=== PATIENT | female | born 1955 | race Caucasian/White ===

== ENCOUNTER → 2022-07-22 14:44 | Outpatient (BNVA) | payer OTHER, MEDICARE, SELFPAY | PROVIDERS: PCP Physician Assistant; Visit Provider Anesthesiology | DX: M96.1 Postlaminectomy syndrome, not elsewhere classified (principal) ==

== ENCOUNTER 2022-08-18 06:18 | Outpatient (REF) | payer OTHER, MEDICARE, SELFPAY ==
--- NOTE | ~2022-08-18 | FL_ITS ---
EXAMINATION: XR FLUOROSCOPY WITH IMAGES CLINICAL INFORMATION: Sacrococcygeal disorder COMPARISON: None. TECHNIQUE: Fluoroscopy Supervised By: Diamond. Fluoroscopy Time: 0.1 minutes. Cumulative Dose: 4.21 mGy. DAP: 1.14 Gycm2. Images: 1. FINDINGS: A single digital image of left SI joint reveals needle position SI joint with contrast was partially opacifying the joint space. No visible fracture or dislocation seen. No bony abnormality. The soft tissues are normal. FL/FL guidance in treatment room IMPRESSION: Fluoroscopy guidance was provided to referrer for left SI joint injection.
== END 2022-08-18 06:19 | disposition home or self-care (01) ==
LOC: CF 06:18
PROVIDERS: Visit Provider Anesthesiology
DX: M53.3 Sacrococcygeal disorders, not elsewhere classified (principal); M46.1 Sacroiliitis, not elsewhere classified; G89.29 Other chronic pain
CPT/HCPCS: 27096

== ENCOUNTER → 2022-08-20 08:07 | Outpatient (BNVA) | payer OTHER, MEDICARE, SELFPAY | PROVIDERS: PCP Physician Assistant; Visit Provider Anesthesiology | DX: Z13.89 Encounter for screening for other disorder (principal) ==

== ENCOUNTER 2022-10-30 10:52 | Day surgery (SDC) | payer OTHER, MEDICARE, SELFPAY ==
[2022-10-27 15:48] VITALS: BMI 31.3
--- NOTE | 2022-10-29 12:17 | HO.ANESPROP2 ---
Documented by User: Serena Bates NP 10/29/22 12:31 HPI - Anesthesia Eval Consult details Narrative: 67yo F for Spinal Cord Stimulator Trial Cardiology ok'd holding asa/plavix - last visit 04/2022 s/p cardiac cath with stent 2020 s/p MVR with LA maze and LA appendenge ligation 2016 Pulm htn improved SOB with isosorbide and diuretics PMFSH Active Problems Active Problems: All Active Problems (Updated 09/14/22 @ 10:55 by Thao Murguia RN) Postlaminectomy syndrome (Acute) Chronic pain syndrome (Acute) Sacroiliitis (Acute) Chronic right sacroiliac joint pain (Acute) Chronic left sacroiliac joint pain (Acute) Past Medical History Medical History (Updated 09/14/22 @ 10:55 by Thao Murguia RN) Atrial fibrillation Barretts esophagus Central sleep apnea CHF (congestive heart failure) Chronic renal insufficiency COPD (chronic obstructive pulmonary disease) Elevated cholesterol GERD (gastroesophageal reflux disease) History of cardioversion HTN (hypertension) Hypothyroid Mitral valve regurgitation Mitral valve stenosis Pulmonary hypertension Tobacco dependence Surgical History Surgical History (Updated 09/14/22 @ 10:55 by Thao Murguia RN) H/O colonoscopy History of total left hip replacement Hx of appendectomy Hx of cardiac catheterization Hx of cholecystectomy Hx of mitral valve replacement Social History Social History (Updated 09/14/22 @ 11:10 by Thao Murguia RN) Patient Tobacco Use Status: Current everyday Tobacco user Tobacco use type: Cigarette Cigarettes Per Day: 5 Use of substances other than those prescribed or required for medical reasons: No Are you DNR?: No Advance Directives: No Advance Directives Information Provided: Yes Meds Allergies Allergy/AdvReac Type Severity Reaction Status Date / Time No Known Allergies Allergy Verified 08/20/22 08:07 Home Medications Medication Instructions Recorded Confirmed Last Taken Type aspirin 81 mg tablet,delayed 81 mg PO DAILY 07/22/22 10/27/22 10/22/22 History release escitalopram oxalate 10 mg tablet 10 mg PO DAILY 07/22/22 10/27/22 10/30/22 History fenofibrate nanocrystallized 48 mg 48 mg PO BEDTIME 07/22/22 10/27/22 Unknown History tablet gabapentin 300 mg capsule 900 mg PO TID 07/22/22 10/27/22 10/30/22 History hydroxyzine pamoate 25 mg capsule 25 mg PO TID PRN anxiety 07/22/22 10/27/22 Unknown History isosorbide mononitrate 30 mg 30 mg PO BID 07/22/22 10/27/22 10/30/22 History tablet,extended release 24 hr levothyroxine 200 mcg tablet 200 mcg PO DAILY 07/22/22 10/27/22 10/30/22 History metoprolol succinate 25 mg 25 mg PO BEDTIME 07/22/22 10/27/22 Unknown History tablet,extended release 24 hr simvastatin 40 mg tablet 40 mg PO BEDTIME 07/22/22 10/27/22 Unknown History torsemide 10 mg tablet 20 mg PO DAILY 07/22/22 10/27/22 Unknown History albuterol sulfate 90 mcg/actuation 2 puff inhalation Q4-6H PRN 09/14/22 10/27/22 Unknown History aerosol inhaler (ProAir HFA) Shortness Of Breath allopurinol 100 mg tablet 1 tab PO BID 09/14/22 10/27/22 Unknown History cholecalciferol (vitamin D3) 25 25 mcg PO DAILY 09/14/22 10/27/22 Unknown History mcg (1,000 unit) capsule (Vitamin D3) colchicine 0.6 mg capsule 1 cap PO BID PRN gout 09/14/22 10/27/22 Unknown History cyanocobalamin (vitamin B-12) 1,000 mcg PO DAILY 09/14/22 10/27/22 Unknown History 1,000 mcg tablet (Vitamin B-12) duloxetine 60 mg capsule,delayed 1 cap PO DAILY 09/14/22 10/27/22 10/30/22 History release esomeprazole magnesium 40 mg 40 mg PO DAILY 09/14/22 10/27/22 10/30/22 History capsule,delayed release (Nexium) fluticasone 250 mcg-salmeterol 50 1 inh inhalation BID 09/14/22 09/14/22 Unknown History mcg/dose blistr powdr for inhalation (Advair Diskus) budesonide 160 mcg-glycopyr 9 2 inh inhalation BID 10/27/22 10/27/22 Unknown History mcg-formot 4.8 mcg/actuation HFA inhaler (Breztri Aerosphere) Exam Exam Date and Time: October 29, 2022 121 Height,Weight and Vital Signs: Height 5 ft 7 in Weight 90.718 kg Narrative Narrative: EKG 2020 NSR RAD RV hypertrophy Nonstpefic ST abn ECHO 2020 LV size is normal. LV wall thickness is mildly increased. Nml LV size and function with EF 60-65%. Abnormal septal wall motion. Unable to assess diastolic function d/t MV prosthesis. Trileaflet aortic valve. AV appears mildly calcified. No . No AR. Normally functioning bioprosthetic valve in mitral positioin. No mitral regurg No signif mitral stenosis No signif pericardial effusion. Epicardial fat pad present Assessment and Plan Assessment Anesthesia Assessment: Chart Reviewed Documented by User: Matteo Lopez MD 10/30/22 13:49 HPI - Anesthesia Eval Consult details Narrative: 67yo F for Spinal Cord Stimulator Trial Cardiology ok'd holding asa/plavix - last visit 04/2022 s/p cardiac cath with stent 2020 s/p MVR with LA maze and LA appendenge ligation 2016 Pulm htn improved SOB with isosorbide and diuretics I rev mult records recvd from [facility]. Cath'ed 2020 bec of BERGER. Had RCA lesion stented. Normal LV fxn w severe PHTN (78/31) Unable to walk on level ground bec of back pain. [facility] Past Medical History Medical History (Updated 09/14/22 @ 10:55 by Thao Murguia RN) Atrial fibrillation Barretts esophagus Central sleep apnea CHF (congestive heart failure) Chronic renal insufficiency COPD (chronic obstructive pulmonary disease) Elevated cholesterol GERD (gastroesophageal reflux disease) History of cardioversion HTN (hypertension) Hypothyroid Mitral valve regurgitation Mitral valve stenosis Pulmonary hypertension Tobacco dependence Family History Family history of problems with anesthesia: No Surgical History Surgical History (Updated 09/14/22 @ 10:55 by Thao Murguia RN) H/O colonoscopy History of total left hip replacement Hx of appendectomy Hx of cardiac catheterization Hx of cholecystectomy Hx of mitral valve replacement History of Problems with Anesthesia: No Social History Social History (Updated 09/14/22 @ 11:10 by Thao Murguia RN) Patient Tobacco Use Status: Current everyday Tobacco user Tobacco use type: Cigarette Cigarettes Per Day: 5 Use of substances other than those prescribed or required for medical reasons: No Are you DNR?: No Advance Directives: No Advance Directives Information Provided: Yes Meds Allergies Allergy/AdvReac Type Severity Reaction Status Date / Time No Known Allergies Allergy Verified 08/20/22 08:07 Home Medications Medication Instructions Recorded Confirmed Last Taken Type aspirin 81 mg tablet,delayed 81 mg PO DAILY 07/22/22 10/27/22 10/22/22 History release escitalopram oxalate 10 mg tablet 10 mg PO DAILY 07/22/22 10/27/22 10/30/22 History fenofibrate nanocrystallized 48 mg 48 mg PO BEDTIME 07/22/22 10/27/22 Unknown History tablet gabapentin 300 mg capsule 900 mg PO TID 07/22/22 10/27/22 10/30/22 History hydroxyzine pamoate 25 mg capsule 25 mg PO TID PRN anxiety 07/22/22 10/27/22 Unknown History isosorbide mononitrate 30 mg 30 mg PO BID 07/22/22 10/27/22 10/30/22 History tablet,extended release 24 hr levothyroxine 200 mcg tablet 200 mcg PO DAILY 07/22/22 10/27/22 10/30/22 History metoprolol succinate 25 mg 25 mg PO BEDTIME 07/22/22 10/27/22 Unknown History tablet,extended release 24 hr simvastatin 40 mg tablet 40 mg PO BEDTIME 07/22/22 10/27/22 Unknown History torsemide 10 mg tablet 20 mg PO DAILY 07/22/22 10/27/22 Unknown History albuterol sulfate 90 mcg/actuation 2 puff inhalation Q4-6H PRN 09/14/22 10/27/22 Unknown History aerosol inhaler (ProAir HFA) Shortness Of Breath allopurinol 100 mg tablet 1 tab PO BID 09/14/22 10/27/22 Unknown History cholecalciferol (vitamin D3) 25 25 mcg PO DAILY 09/14/22 10/27/22 Unknown History mcg (1,000 unit) capsule (Vitamin D3) colchicine 0.6 mg capsule 1 cap PO BID PRN gout 09/14/22 10/27/22 Unknown History cyanocobalamin (vitamin B-12) 1,000 mcg PO DAILY 09/14/22 10/27/22 Unknown History 1,000 mcg tablet (Vitamin B-12) duloxetine 60 mg capsule,delayed 1 cap PO DAILY 09/14/22 10/27/22 10/30/22 History release esomeprazole magnesium 40 mg 40 mg PO DAILY 09/14/22 10/27/22 10/30/22 History capsule,delayed release (Nexium) fluticasone 250 mcg-salmeterol 50 1 inh inhalation BID 09/14/22 09/14/22 Unknown History mcg/dose blistr powdr for inhalation (Advair Diskus) budesonide 160 mcg-glycopyr 9 2 inh inhalation BID 10/27/22 10/27/22 Unknown History mcg-formot 4.8 mcg/actuation HFA inhaler (Breztri Aerosphere) Exam Airway Mallampati Class: I TM Dist: >3cm Neck ROM: Full Denture: Upper and Lower Heart: as above. Lungs: RA Sat 94%. Assessment and Plan Assessment Anesthesia Assessment: Anesthesia Plan Discussed Final Anesthetic Review Family History of Problems with Anesthesia: No History of Problems with Anesthesia: No NPO: Yes ASA Class: IV Final Preanesthetic Review: No Changes in Pt Med Stat, Meds/Allgs Chart Reviewed, Consent Obtained/Reviewed and Anes Risks/Benef Reviewed Patient Risk: High Procedure Risk: Intermediate Anesthetic Plan Anesthetic Plan: GA and Agree w/ Assess. and Plan Disposition: Standard PACU
[2022-10-30] VITALS (7 sets, daily range): BP systolic 115–133; BP diastolic 53–72; PULSE 75–85; RESP 12–18; TEMP 36.3–36.7; O2SAT 91–94; BMI 31.3
--- NOTE | ~2022-10-30 | FL_ITS ---
EXAMINATION: XR FLUOROSCOPY WITH IMAGES CLINICAL INFORMATION: Spinal cord stimulator trial. COMPARISON: None available. TECHNIQUE: Fluoroscopy Supervised By: Dr. Renzo De La Vega. Fluoroscopy Time: 8.4 minutes. Cumulative Dose: 211 mGy. DAP: 53.8 Gycm2. Images: 3. FINDINGS: 3 images demonstrate placement of 2 stimulator wires with one appearing to lie at the superior margin of T8 and the other at the superior margin of T9. FL/FL guidance in OR IMPRESSION: Intraoperative fluoroscopy for pain management procedure.
[2022-10-30] MEDS: Lactated Ringers 1,000 ML 50 ML IVCONT (12:20)
--- NOTE | 2022-10-30 12:39 | MHC.SHP ---
Pre-Procedural Eval Section A Date of Service: 10/30/22 Changes since office visit: Yes Patient answered all questions The History & Physical has been completed within 30 days and I have reviewed it.: No Section B Chief Complaint: Postlaminectomy syndrome, not elsewhere classified Details of Present Illness: as above Relevant Family History (Specify if Yes): No Relevant Social History: None Present Medications: None Medical History: No relevant PMH History of Previous Operations: No relevant previous surgery Allergies: Allergies Allergy/AdvReac Type Severity Reaction Status Date / Time No Known Allergies Allergy Verified 08/20/22 08:07 Review of Systems Sugical H&P ROS: Negative: Constitution, Cardiovascular, Respiratory, Neurological, Psychiatric, Hem-Onc, Allergic/Immunologic, Gastrointestinal, Genitourinary, Musculoskeletal, Integumentary, Endocrine and Eyes/Ears/Nose/Throat Exam Surgical H&P Exam: Normal: HEENT, Normal: Heart, Normal: Lungs, Normal: Extremities, Normal: Abdomen, Normal: Skin and Normal: Neurological Plan Diagnosis/Plan: Unchanged I have reviewed the history and physical and performed a pertinent physical examination on my patient. No changes have occurred unless specified. Time Spent With Patient Time: Total time managing care of this patient today ____ minutes.
--- NOTE | 2022-10-30 13:37 | P.OP_ITS ---
Operative Note Operative Note Date of Service: 10/30/22 Narrative: Maryan is very pleasant 67 y.o. female who came today into the operating room for trial of spinal cord stimulator Nevro for the treatment of post laminectomy syndrome and axial lower back pain. Preoperatively patient received cephalexin 3 g IV approximately 10 min before procedure. After obtaining informed consent patient was brought to the operating room, SHE was positioned prone on operating table, [place] [employer] monitors were applied and GLMA was induced.? Time-out was performed delineating correct site, side, the nature of the procedure, patient's allergy, preoperative antibiotic if needed.? All operating room staff was participating in OR time-out procedure. Patient's entire back was prepped with ChloraPrep twice and draped with full body fenestrated drape.? Sterilely draped C-arm was brought over operating field and sqare picture of T11-T12 L1 L2 vertebrae as were demonstrated on the screen.? Attention FIRST? was concentrated on the L1-L2 epidural interspace.? The location of the projection of the right pedicle center of the _L3 vertebra was found on the skin using C-arm.? This location was injected with mixture of lidocaine 2% and Marcaine 0.5% 5 cc.? After that 11 blade was used to make a gulshan on the skin.? 10 cm 14 gauge introducer epidural needle was inserted through the gulshan and advanced to L1-L2 epidural interspace.? The advancement of the needle was performed on anterior posterior and lateral views.?FRANDY to air was used to detect epidural space. Guitar wire and loss of resistance technique were used to locate epidural space.? When guitar wire was spread in the epidural fashion, epidural lead was inserted through the needle And attempt was made to advance this epidural lead strict in the midline in the posterior fashion. Unfortunately heavy adhesions on the right side of the spinal canal deviated the device to the left gutter. The decision was made to change the entrance into the epidural space to T12-L1. 15 cm introducer epidural needle was obtained and inserted through the same gulshan of the skin. It was advanced to were the T12-L1 epidural space under anterior posterior and lateral views of C-arm, loss of resistance to air technique was used to locate the epidural space. guitar wire was inserted through the needle and was spread in the epidural space in the posterior fashion. After that epidural leads was inserted through the needle and was advanced to were the T8 see rear epidural space. After that location of the projection of the LEFT pedicle center of the L2 vertebra was found on the skin using C-arm.? This location was injected with mixture of lidocaine 2% and Marcaine 0.5% 5 cc.? After that 11 blade was used to make a gulshan on the skin.? 10 cm 14 gauge curved introducer epidural needle was inserted through the gulshan and advanced to T12-L1 epidural interspace.? The advancement of the needle was performed on anterior posterior and lateral views.? Guitar wire and loss of resistance technique were used to locate epidural space.? When guitar wire was spread in the epidural fashion, epidural lead was inserted through the needle and advanced to the T11 epidural posteriorly it was noted that epidural space is getting significant resistance against the upper portion of the lamina and it interfered with advancement. After that the epidural needle was withdrawn and blue sheath introducer was inserted over the epidural lead into the epidural space. After that advancement of the epidural lead went much easier and I was able to advance the epidural lead to the T9 posterior epidural space. Lateral view was obtained de monstrating both leads located in the posterior epidural space. After satisfactory position of the leads were established the needles were withdrawn, the stylette wires were removed from the epidural leads.?the position of the leads in the posterior epidural space was verified by C-Arm image. The anchoring devices were dislodged on the leads and advanced to the level of the skin.? The anchoring devices were sutured with two 0-0 silk sutures Per each device to the skin of the patient.? The screws were tighten on the anchoring devices until 3 clicks were heard. The leads were connected to testing device.? Bacitracin ointment was applied to the entrance point of bilateral needles.? Sterile dressing was applied to the patient's back.? The testing device was also glued to the patient's back. the patient tolerated procedure well, she was awaken, LMA was removed and patient was transferred stable to PACU?
--- NOTE | 2022-10-30 15:35 | PM.OP ---
Brief Operative Note Date of Service: 10/30/22 Pre-op diagnosis: Postlaminectomy syndrome chronic pain syndrome axial lower back pain. Post-op diagnosis: same Procedure: Trial of Nevro SCS Implants: none permanent Surgeon: Renzo De La Vega MD Anesthesia: GLMA Was an Highway Maintenance Crew Worker used for this Procedure?: No Estimated blood loss (mL): 1 Condition: stable Disposition: PACU
== END 2022-10-30 16:30 | disposition home or self-care (01) ==
PROVIDERS: PCP Physician Assistant; Visit Provider Anesthesiology
PROC: (CPT 63650; principal; 2022-10-30 10:50)
DX: M96.1 Postlaminectomy syndrome, not elsewhere classified (principal); G89.4 Chronic pain syndrome; M46.1 Sacroiliitis, not elsewhere classified; M53.3 Sacrococcygeal disorders, not elsewhere classified; M54.50 Low back pain, unspecified; I48.91 Unspecified atrial fibrillation; E78.5 Hyperlipidemia, unspecified; G47.31 Primary central sleep apnea; E03.9 Hypothyroidism, unspecified; J44.9 Chronic obstructive pulmonary disease, unspecified; I13.0 Hypertensive heart and chronic kidney disease with heart failure and stage 1 through stage 4 chronic kidney disease, or unspecified chronic kidney disease; I50.9 Heart failure, unspecified; N18.9 Chronic kidney disease, unspecified; I27.20 Pulmonary hypertension, unspecified; F17.210 Nicotine dependence, cigarettes, uncomplicated; Z79.01 Long term (current) use of anticoagulants; Z79.82 Long term (current) use of aspirin; Z79.899 Other long term (current) drug therapy
CPT/HCPCS: 63650 ×2; C1713; C1897; J0690; J2250; J2405; J2795; J3010

== ENCOUNTER → 2022-11-05 09:55 | Outpatient (BNVA) | payer OTHER, MEDICARE, SELFPAY | PROVIDERS: PCP Physician Assistant; Visit Provider Anesthesiology | DX: Z13.89 Encounter for screening for other disorder (principal) ==

== ENCOUNTER 2022-12-22 05:53 | Outpatient (REF) | payer OTHER, MEDICARE, SELFPAY ==
--- NOTE | ~2022-12-22 | FL_ITS ---
EXAMINATION: XR FLUOROSCOPY WITH IMAGES CLINICAL INFORMATION: Chronic pain syndrome COMPARISON: None available. TECHNIQUE: Fluoroscopy Supervised By: Dr. De La Vega. Fluoroscopy Time: 0.4 min. Cumulative Dose: 5.02 mGy. DAP: 0.0872 Gycm2. Images: 3. FINDINGS: Images demonstrate needle placement and contrast injection over the left iliac crest. FL/FL guidance in treatment room IMPRESSION: Fluoroscopy guidance for pain management procedure.
== END 2022-12-22 05:54 | disposition home or self-care (01) ==
LOC: CF 05:53
PROVIDERS: Visit Provider Anesthesiology
DX: M96.1 Postlaminectomy syndrome, not elsewhere classified (principal); M46.1 Sacroiliitis, not elsewhere classified; M53.3 Sacrococcygeal disorders, not elsewhere classified; G89.4 Chronic pain syndrome
CPT/HCPCS: 64450

== ENCOUNTER → 2022-12-24 10:33 | Outpatient (BNVA) | payer OTHER, MEDICARE, SELFPAY | PROVIDERS: PCP Physician Assistant; Visit Provider Anesthesiology ==

== ENCOUNTER → 2022-12-28 15:36 | Outpatient (BNVA) | payer OTHER, MEDICARE, SELFPAY | PROVIDERS: PCP Physician Assistant; Visit Provider Anesthesiology ==

== ENCOUNTER 2023-05-24 13:08 | Emergency (ER) | payer OTHER, MEDICARE, SELFPAY ==
--- NOTE | ~2023-05-24 | XR_ITS ---
EXAMINATION: XR WRIST, LEFT CLINICAL INFORMATION: Trauma COMPARISON: None available. TECHNIQUE: PA, lateral, and oblique views of the left wrist. FINDINGS: There is a comminuted fracture of the left distal radius. This extends to the radiocarpal joint. There is dorsal displacement and angulation of distal fracture fragments with respect to the more proximal shaft. There is some overriding of fracture fragments No other acute fracture is seen. There is old healed fracture and 2 screws in the left fifth metacarpal bone. There is arthritis at the first NURSING HOME joint. There is soft tissue swelling adjacent to the fracture. XR/XR wrist LT min 3V IMPRESSION: Comminuted displaced angulated intra-articular left distal radius fracture.
--- NOTE | ~2023-05-24 | XR_ITS ---
EXAMINATION: XR WRIST, LEFT CLINICAL INFORMATION: Post reduction COMPARISON: Previous x-ray from earlier the same day TECHNIQUE: PA, lateral, and oblique views of the left wrist. FINDINGS: Improved alignment of the left distal radius fracture. There is interval decrease in dorsal displacement and angulation. Distal fracture fragments are still displaced dorsally with respect to the more proximal shaft measuring maximum 7 mm and there is some impaction or overriding..There is radial displacement of the radial styloid as well measuring 8 mm. There is an ulnar styloid fracture. There is a new overlying cast or splint. There are 2's roots transfixing a old healed left fifth metacarpal shaft fracture. There is arthritis at the first FCI joint. There is diffuse soft tissue swelling. XR/XR wrist LT 2V IMPRESSION: Improved alignment of the left distal radius fracture. There is still dorsal displacement of fracture fragments, impaction and radial displacement of the radial styloid.
[2023-05-24 13:10] VITALS: BP 111/63; BP 137/79; PULSE 78; PULSE 79; RESP 18; TEMP 37.2; O2SAT 98; O2SAT 99; BMI 31.4
--- NOTE | 2023-05-24 13:22 | ED_ITS ---
HPI - Extremity Problem General Chief complaint: Extremity Injury, Upper Stated complaint: ? wrist fx s/p fall, +thinners per ems Time Seen by Provider: 05/24/23 13:17 Source: patient Mode of arrival: EMS Limitations: no limitations History of Present Illness HPI Narrative: This is 67 years old female tripped and fell at work she is complaining of left wrist pain. She has history of CVA she has MD Complaint: extremity pain Onset (ago): hour(s) (1) Pain Consistency: constant Location: left and other (wrist pain) Quality: constant Radiation: none Relieving factors: nothing and rest Exacerbating factors: range of motion Associated symptoms: denies other symptoms Related Data Home Medications Medication Instructions Recorded Confirmed aspirin 81 mg tablet,delayed 81 mg PO DAILY 07/22/22 11/05/22 release escitalopram oxalate 10 mg tablet 10 mg PO DAILY 07/22/22 11/05/22 fenofibrate nanocrystallized 48 mg 48 mg PO BEDTIME 07/22/22 11/05/22 tablet gabapentin 300 mg capsule 900 mg PO TID 07/22/22 11/05/22 hydroxyzine pamoate 25 mg capsule 25 mg PO TID PRN anxiety 07/22/22 11/05/22 isosorbide mononitrate 30 mg 30 mg PO BID 07/22/22 11/05/22 tablet,extended release 24 hr levothyroxine 200 mcg tablet 200 mcg PO DAILY 07/22/22 11/05/22 metoprolol succinate 25 mg 25 mg PO BEDTIME 07/22/22 11/05/22 tablet,extended release 24 hr simvastatin 40 mg tablet 40 mg PO BEDTIME 07/22/22 11/05/22 torsemide 10 mg tablet 20 mg PO DAILY 07/22/22 11/05/22 albuterol sulfate 90 mcg/actuation 2 puff inhalation Q4-6H PRN 09/14/22 11/05/22 aerosol inhaler (ProAir HFA) Shortness Of Breath allopurinol 100 mg tablet 1 tab PO BID 09/14/22 11/05/22 cholecalciferol (vitamin D3) 25 25 mcg PO DAILY 09/14/22 11/05/22 mcg (1,000 unit) capsule (Vitamin D3) colchicine (gout) 0.6 mg capsule 1 cap PO BID PRN gout 09/14/22 11/05/22 cyanocobalamin (vitamin B-12) 1,000 mcg PO DAILY 09/14/22 11/05/22 1,000 mcg tablet (Vitamin B-12) duloxetine 60 mg capsule,delayed 1 cap PO DAILY 09/14/22 11/05/22 release esomeprazole magnesium 40 mg 40 mg PO DAILY 09/14/22 11/05/22 capsule,delayed release (Nexium) fluticasone 250 mcg-salmeterol 50 1 inh inhalation BID 09/14/22 11/05/22 mcg/dose blistr powdr for inhalation (Advair Diskus) budesonide 160 mcg-glycopyr 9 2 inh inhalation BID 10/27/22 11/05/22 mcg-formot 4.8 mcg/actuation HFA inhaler (Breztri [employer]) Previous Rx's Medication Instructions Recorded cephalexin 500 mg tablet 1,000 mg (2 x 500 mg) PO Q8H 7 10/30/22 days #42 tabs oxycodone 5 mg tablet 5 mg PO Q6H PRN pain #15 tabs 05/24/23 Allergies Allergy/AdvReac Type Severity Reaction Status Date / Time No Known Allergies Allergy Verified 12/28/22 15:37 Review of Systems Constitutional: Constitutional: Reports no additional constitutional complaints Cardiovascular: Cardiovascular: Reports no additional cardiovascular complaints Integumentary/Breasts: Skin/Breast: Reports system reviewed and no additional complaints, except as docu PMFSH Past Medical History Attestation statement: The following information was validated with the patient. Medical History Barretts esophagus Chronic renal insufficiency GERD (gastroesophageal reflux disease) Pulmonary hypertension History of cardioversion Atrial fibrillation Mitral valve stenosis Mitral valve regurgitation CHF (congestive heart failure) COPD (chronic obstructive pulmonary disease) Central sleep apnea Tobacco dependence Hypothyroid Elevated cholesterol HTN (hypertension) Surgical History H/O colonoscopy History of total left hip replacement Hx of cholecystectomy Hx of appendectomy Hx of cardiac catheterization Hx of mitral valve replacement Social History Social History (Updated 09/14/22 @ 11:10 by Thao Murguia RN) Alcohol intake: never Patient Tobacco Use Status: Current everyday Tobacco user Tobacco use type: Cigarette Cigarettes Per Day: 5 Smoked in Last 30 Days: Yes Use of substances other than those prescribed or required for medical reasons: No Advance Directives: Yes Advance Directives Information Provided: No Advance Directives on File: No Physical Exam Vital Signs: Vital Signs: Last Vital Signs Temp 98.9 F 05/24/23 13:10 Pulse 79 05/24/23 13:10 Resp 18 05/24/23 13:10 BP 111/63 05/24/23 13:10 Pulse Ox 99 05/24/23 13:10 O2 Del Method Room Air 05/24/23 13:10 BMI result Body Mass Index 31.4 Const: General: cooperative Nutritional Appearance: well nourished Orientation/consciousness: patient oriented x3 Limitations: no limitations HEENT: Head: Yes normal to inspection Face and sinus: Yes normal facial exam Mouth: Normal oral and palatal mucosa present Chest: Chest palpation & inspection: normal inspection of the chest Resp: Effort & Inspection: normal respiratory effort Auscultation: clear to auscultation bilaterally Cardio: Jugular venous distension: no JVD Rate: regular rate GI: Inspection: Yes normal to inspection Palpation (GI): Soft to palpation, not firm, nontender and no guarding Skin: General skin exam: elasticity normal Neuro: General: patient oriented x3 Extrem: Other: Examination of the LEs wrist showed deformity/ swelling Course Reevaluation(s) Reevaluation #1: case was d/w with dr Campos he asked me to reduce the wrist Time: 15:33 Reevaluation #2: wrist was reduced under digital block picture after post reduction sent to Dr Jason BARRIENTOS to d/c home and follow up with Dr Fraser Time: 15:33 Consultations Consultation #1: Dr Heller Medications Administered Discontinued Medications Generic Name Dose Route Start Last Admin Trade Name Peace PRN Reason Stop Dose Admin Fentanyl 50 mcg 05/24/23 14:29 05/24/23 14:41 Fentanyl Citrate/Pf 100 Mcg/2 Ml Vial IVPUSH 05/24/23 14:30 50 mcg ONCE ONE Administration Protocol Fentanyl 50 mcg 05/24/23 14:48 05/24/23 14:50 Fentanyl Citrate/Pf 100 Mcg/2 Ml Vial IVPUSH 05/24/23 14:49 50 mcg ONCE ONE Administration Protocol Fentanyl 50 mcg 05/24/23 14:48 05/24/23 14:57 Fentanyl Citrate/Pf 100 Mcg/2 Ml Vial IVPUSH 05/24/23 14:49 50 mcg ONCE ONE Administration Protocol Lidocaine HCl 5 ml 05/24/23 14:27 05/24/23 14:41 Lidocaine Hcl 1 % Mpf 5 Ml Vial INFILTRATI 05/24/23 14:28 5 ml ONCE ONE Administration Medical Decision Making Medical Decision Making [facility] Narrative: Patient presented with left wrist fracture she had a mechanical fall fracture was displays reduction was performed under hematoma block Differential Diagnosis Differential Diagnoses: The differential diagnosis associated with the presentation includes Fracture fx Consult Healthcare Provider Management of the patient was discussed with: Head [employer]er [employer] Ortho Dr Campos Independent Interpretation I performed an independent interpretation of an: Plain X-Ray Interpretation: I personally review and interpreted the x-ray of the wrist Radiology Impression Discussion of test interpretation with radiology: I have reviewed the radiologist's reading. Radiologist Impression: al displacement and angulation of distal fracture fragments with respect to the more proximal shaft. There is some overriding of fracture fragments No other acute fracture is seen. There is old healed fracture and 2 screws in the left fifth metacarpal bone. There is arthritis at the first CORRECTION joint. There is soft tissue swelling adjacent to the fracture. XR/XR wrist LT min 3V IMPRESSION: Comminuted displaced angulated intra-articular left distal radius fracture. Dictated By: Maryan Dick MD Signed By: <Electronically Prescription Management I considered prescription management with: Pain Medication Prescription for oxycodone Procedures Orthopedic Fracture Reduction Fracture #1: Time Out Performed: Yes Side: left Fracture Reduction Location: radius Analgesia: hematoma block Technique: direct manipulation and traction/counter-traction Post Reduction X-rays Demonstrate: acceptable reduction Post-reduction neuro exam: intact Post-reduction vascular exam: intact Splint Applied: Yes (sugar tongue splint) Patient Tolerated Procedure: well and no complications Discharge Plan Discharge Clinical Impression: Distal radius fracture, left Qualifiers: Encounter type: initial encounter Fracture type: closed Fracture morphology: Colles' Qualified Code(s): S52.532A - Colles' fracture of left radius, initial encounter for closed fracture Patient Disposition: Home, Self-Care Instructions: Wrist Fracture in Adults (ED) Additional Instructions: follow up with Dr Fraser ,keep splint on Prescriptions: New oxycodone 5 mg tablet 5 mg PO Q6H PRN (Reason: pain) Qty: 15 0RF Rx Instructions: partial filing upon pt request; Partial Fill upon patient request. No Action Breztri [employer] 160-9-4.8 mcg/actuation HFA aerosol inhaler 2 inh INHALATION BID cephalexin 500 mg tablet 1,000 mg PO Q8H 7 Days Qty: 42 0RF Rx Instructions: take OTC probiotics 25 billion cultures in between the doses of the antibiotics. fluticasone propion-salmeterol [Advair Diskus] 250-50 mcg/dose Blister With Device 1 inh INHALATION BID cyanocobalamin (vitamin B-12) [Vitamin B-12] 1,000 mcg Tablet 1,000 mcg PO DAILY allopurinol 100 mg tablet 1 tab PO BID esomeprazole magnesium [Nexium] 40 mg Capsule,Delayed Release(Dr/Ec) 40 mg PO DAILY albuterol sulfate [ProAir HFA] 90 mcg/actuation Hfa Aerosol Inhaler 2 puff INHALATION Q4-6H PRN (Reason: Shortness Of Breath) cholecalciferol (vitamin D3) [Vitamin D3] 25 mcg (1,000 unit) Capsule 25 mcg PO DAILY duloxetine 60 mg capsule,delayed release(DR/EC) 1 cap PO DAILY colchicine (gout) 0.6 mg capsule 1 cap PO BID PRN (Reason: gout) fenofibrate nanocrystallized 48 mg tablet 48 mg PO BEDTIME hydroxyzine pamoate 25 mg capsule 25 mg PO TID PRN (Reason: anxiety) metoprolol succinate 25 mg tablet extended release 24 hr 25 mg PO BEDTIME simvastatin 40 mg tablet 40 mg PO BEDTIME gabapentin 300 mg capsule 900 mg PO TID torsemide 10 mg tablet 20 mg PO DAILY escitalopram oxalate 10 mg tablet 10 mg PO DAILY isosorbide mononitrate 30 mg tablet extended release 24 hr 30 mg PO BID levothyroxine 200 mcg tablet 200 mcg PO DAILY aspirin 81 mg tablet,delayed release (DR/EC) 81 mg PO DAILY Referrals: Benigno Fraser MD [Physician] - 3 days Stand Alone Forms: Work/School Release
[2023-05-24] MEDS: fentaNYL citrate/PF 100 MCG/2 ML VIAL 50 MCG IVPUSH ×3 (14:41→14:57)
[2023-05-24] MEDS: Lidocaine HCl 1 % MPF 5 ML VIAL INFILTRATI (14:41)
== END 2023-05-24 16:08 | disposition home or self-care (01) ==
PROVIDERS: Emergency Provider Emergency Medicine; PCP Physician Assistant
DX: S52.532A Colles' fracture of left radius, initial encounter for closed fracture (principal); M25.532 Pain in left wrist; W01.0XXA Fall on same level from slipping, tripping and stumbling without subsequent striking against object, initial encounter; Y93.9 Activity, unspecified; Y92.9 Unspecified place or not applicable; Y99.0 Civilian activity done for income or pay; F17.210 Nicotine dependence, cigarettes, uncomplicated; Z71.6 Tobacco abuse counseling; Z79.899 Other long term (current) drug therapy
CPT/HCPCS: 29125; 73100; 73110; 96374; 99283; 99284; J3010

== ENCOUNTER 2023-06-03 11:06 | Outpatient (REF) | payer OTHER, SELFPAY | END 2023-06-03 11:07 | disposition home or self-care (01) | LOC: HO.HOSX 11:06 | PROVIDERS: Visit Provider Physician Assistant | DX: Z13.89 Encounter for screening for other disorder (principal) ==